=== PATIENT | female | born 1940 | race Caucasian/White ===

== ENCOUNTER 2018-12-02 13:40 | Day surgery (SDC) | payer SELFPAY ==
[2018-12-02] VITALS (8 sets, daily range): BP systolic 126–164; BP diastolic 56–85; PULSE 70–84; RESP 16–18; TEMP 35.9–37.5; O2SAT 94–97; BMI 29.3
--- NOTE | 2018-12-02 11:48 | PCM.HP.BLA ---
History and Physical Date of Admission: 12/02/18 HISTORY AND PHYSICAL ? Nirmala Zavala 1940 ? ? REFERRING PHYSICIAN: ??Hao Flores MD ? CHIEF COMPLAINT: ??Consult (Consult Perinoneal pleurex) ? HPI:?I am seeing this patient in conjunction with Dr. Dorsey.??The patient is a 78 year old female with a complaint of?ascites and?ovarian cancer, following with Dr. Flores.??Patient has noted recent ascites with significant abdominal bloating and discomfort.??Her who is present notes the size of her abdomen has increased significantly just within the last two days. ?Patient notes decreased appetite due to bloating and tightness in abdomen, also significant discomfort at night when trying to sleep. ? Patient's past medical history is significant for?ovarian cancer as noted above, hypertension, hyperlipidemia, SVT.??Patient denies any problems with anesthesia in the past. ? ? PAST MEDICAL HISTORY PAST MEDICAL HISTORY Diagnosis Date ? Hyperlipidemia ? ? Hypertension ? ? Ovarian cancer (HCC) ? ? SVT (supraventricular tachycardia) (HCC) ? ? PAST SURGICAL HISTORY PAST SURGICAL HISTORY Procedure Laterality Date ? PAST SURGICAL HISTORY OF ? ? ? tooth implant ? RESEC OVAR MALIG+WILLIAM+PELV NODES ? 09/20/2014 ? Exploratory laparotomy, total abdominal hysterectomy, infracolic ?omentectomy with interval debulking of ovarian cancer. ? TUNNEL VAD W SUB Q PORT >=5 Right 09/10/2016 ? Insertion right Intrajugular power port ? ? CURRENT MEDICATIONS ? Current Outpatient Medications: mirtazapine (REMERON) 15 mg tablet Take 1 tablet by mouth daily at bedtime. For sleep metoclopramide HCl (REGLAN) 5 mg tablet Take 1 tablet by mouth four times daily as needed. For nausea lisinopril (ZESTRIL) 10 mg tablet Take 1 tablet by mouth twice daily. ondansetron (ZOFRAN) 8 mg tablet Take 1 tablet by mouth every 8 hours as needed. acetaminophen (TYLENOL EXTRA STRENGTH) 500 mg tablet Take 500 mg by mouth every 8 hours as needed. ibuprofen (MOTRIN) 200 mg tablet Take 200 mg by mouth every 6 hours as needed. PYRIDOXINE HCL, VITAMIN B6, (VITAMIN B-6 ORAL) Take ?by mouth once daily. aspirin, enteric coated (ASPIRIN, ENTERIC COATED) 81 mg EC tablet Take 81 mg by mouth every other day. multivitamin tablet Take 1 tablet by mouth once daily. TIMOLOL MALEATE OPHTHALMIC Use 1 Drop in eyes once daily. 1 drop in each eye daily ERGOCALCIFEROL, VITAMIN D2, (VITAMIN D2 ORAL) Take 1 tablet by mouth once daily. ? No current facility-administered medications for this visit.? ? ALLERGIES:?Contrast Dye [Iodine] ? PERSONAL HISTORY:? SOCIAL HISTORY Social History ??Socioeconomic History ?Marital status: ?Spouse name: Not on file ?Number of children: Not on file ?Years of education: Not on file ?Highest education level: Not on file ??Social Needs ?Financial resource strain: Not on file ?Food insecurity - worry: Not on file ?Food insecurity - inability: Not on file ?Transportation needs - medical: Not on file ?Transportation needs - non-medical: Not on file ??Occupational History ?Not on file ??Tobacco Use ?Smoking status: Never Smoker ?Smokeless tobacco: Never Used ??Substance and Sexual Activity ?Alcohol use: No ?Drug use: No ?Sexual activity: Never ??Other Topics ?Concerns: ?Not on file ??Social History Narrative ?Not on file ? FAMILY HISTORY:? FAMILY HISTORY FAMILY HISTORY Problem Relation Age of Onset ? None Mother ? age 90 ? other (parkinson's disease [Other]) Father ? age 75 ? None Sister ? ? None Sister ? ? None Sister ? ? None Brother ? ? None Brother ? from fall accident ? None Brother ? from fall accident ? Cancer Maternal Grandmother ? REVIEW OF SYMPTOMS: ??The review of systems data was entered by the nurse and reviewed by me ? Nursing Notes: Giovanni Palm LPN ?12/02/2018 10:25 AM ?Signed REVIEW OF SYSTEMS: ?General:???The patient denies fatigue, denies weight loss, denies weight gain, denies feeling hot, and denies feelings of cold. ?Eyes: ?The patient denies glaucoma, denies eye injury/surgery, wears glasses or contacts. ?Ear/Nose/Throat: ?The patient denies allergies, denies hayfever, denies ear infections, and denies bloody noses. ?Cardiovascular: ?The patient denies chest pain, denies heart disease, NOTES high blood pressure,denies cardiac stent, denies prior heart attack, NOTES irregular heart beat, NOTES high cholesterol, ?denies poor circulation, denies heart failure, other cardiac issues, denies claudication, denies cold feet, denies peripheral arterial stent. ?Respiratory: ?The patient denies tuberculosis, denies pneumonia, denies frequent cough, denies pulmonary embolism, denies shortness of breath, and denies coughing up blood. ?Gastrointestinal: ?The patient denies difficulty swallowing, denies acid reflux, denies ulcers, denies vomiting, denies jaundice/hepatitis, denies gallbladder problems, denies black or tarry stools, denies hemorrhoids, denies bleeding from rectum, denies diverticulitis, denies constipation, denies diarrhea, denies loss of stool control, and denies hernias. ?Kidney/Bladder: ?The patient denies kidney stones, denies urine infections, and denies bloody urine. ?Skin: ?The patient denies a history of skin cancer, denies bleeding/changing moles, and denies a history of skin rash. ?Neurologic: ?The patient denies a history of epilepsy/convulsions, denies headaches, denies head/spinal injuries, and denies stroke/TIA. ?Psychiatric: ?The patient denies psychiatric medications, denies depression, and denies voices, denies substance abuse. ?Endocrine: ?The patient denies thyroid disorders, denies diabetes, and denies hormonal problems. ?Hematologic: ?The patient denies a history of bruising, denies bleeding, and denies anemia, denies blood clots. ?Infections: ?The patient denies a history of measles and mumps, denies rheumatic fever, and denies sexually transmitted diseases. ?Musculoskeletal: ?The patient denies back pain/injury, denies back problems, denies sciatica, denies knee/foot trouble, denies arthritis, or denies gout. ? ? When was patient's last Mammogram screening? unknown ? ? ?Last Colonoscopy: ?unknown ? ? Giovanni Palm LPN? I have confirmed and edited as necessary, the PFSH and ROS obtained by others. ? ? PHYSICAL EXAMINATION: ? General: ?The patient is 78 year old female, well nourished, well hydrated in no acute distress. ?The patient is oriented to time, place, and person. ? VITALS:?Blood pressure 140/75, pulse 67, temperature 36.9 ?C (98.5 ?F), height 152 cm (4' 11.84), weight 70.5 kg (155 lb 8 oz).?Body mass index is 30.53 kg/m?.? ? HEENT: ?Normal cephalic, ataumatic, pupils are equally round, sclera are anicteric, mucous membranes are moist, oropharynx is clear. ?Neck has no masses, asymmetry or lymphadenopathy. ? ? Respiratory: ?Clear to auscultation and percussion. ?Normal respiratory excursion and pattern. ? Cardiac: ?Examination is regular rate and rhythm. ?Normal S1/S2 ? Abdominal exam:??+ascites and moderate generalized discomfort to palpation. ?Portable ultrasound examination performed by Dr. Dorsey showing significant amount of fluid in abdomen. ?No hepatosplenomegaly. ?No palpable hernias. ? Extremities: ?no clubbing, cyanosis or edema. ?No adenopathy. ? ? ? LABORATORY VALUES: As Noted ? RADIOLOGIC STUDIES: ?As Noted ? IMPRESSION:?malignant ascites secondary to ovarian cancer ? PLAN:???Dr. Dorsey also evaluated the patient and participated in development of the following plan. ?He plans to place a PleurX catheter in the abdomen for malignant ascites.??Patient plans to have hospice assist with draining this after placement.??Consent: ?The proposed procedure, risks, benefits, and alternatives were discussed with the patient in detail. ?All the patient's questions were answered, and the patient voiced understanding. ?The patient desires to proceed with surgery. ? ? A letter was sent to ?indicating the above finding for this patient. ? Diagnoses:?(R18.0) Malignant ascites ?(primary encounter diagnosis) (C56.9) Malignant neoplasm of ovary, unspecified laterality (HCC) ? Patient verbalized understanding of all above and agreed with the plan ? Almaz Centeno PA-C ? This patient was seen in conjunction with Almaz Centeno PA-C, ?I reviewed the above note, discussed the pertinent history and examined the patient and agreed with the above examination. ?We have discussed the diagnosis and plan. ?Those plans have been communicated to the patient. ? ? ? PHYSICAL EXAMINATION: ? General: ?The patient is 78 year old female, well nourished, well hydrated in no acute distress. ?The patient is oriented to time, place, and person. ? VITALS:?Blood pressure 140/75, pulse 67, temperature 36.9 ?C (98.5 ?F), height 152 cm (4' 11.84), weight 70.5 kg (155 lb 8 oz). ? HEENT: ?Normal cephalic, ataumatic, pupils are equally round, sclera are anicteric, mucous membranes are moist, oropharynx is clear. ?Neck has no masses, asymmetry or lymphadenopathy. ?Thyroid is unremarkable. ? Respiratory: ?Clear to auscultation and percussion. ?Normal respiratory excursion and pattern. ? Cardiac: ?Examination is regular rate and rhythm. ? Abdominal exam: ?Soft, nontender, ?distended?with no palpable masses. ?No hepatosplenomegaly. ?No palpable hernias. ? Rectal exam:?exam deferred ? Extremities: ?no clubbing, cyanosis or edema. ?No adenopathy. ? Other:? ?ultrasound demonstrated ascites ? LABORATORY VALUES: As Noted ? RADIOLOGIC STUDIES: ?As Noted ? IMPRESSION:?malignant ascites from ovarian cancer ? ? PLAN:???I plan to perform an abdominal tunneled catheter/pleurex with ultrasound guidance.??The planned surgical procedure was discussed extensively with the patient. The risks, benefits and anticipated outcomes of the procedure, the risks and benefits of the alternatives to the procedure, and the roles and tasks of the personnel to be involved, were discussed with the patient. ?My staff has also explained the procedure in understandable terms and the patient was given the option to take printed material concerning the planned procedure. ?The patient had the opportunity to ask questions concerning the planned procedure. ?The patient freely consents to the planned procedure. ? Anticipated Surgical Procedure/ CPT Code:?53528 - Insertion of Tunnelled Intraperitoneal Catheter and 02945 - Ultrasound Guidance for Needle Placement ? Anticipated Anesthetic:?MAC with local ? Patient weight:??Blood pressure 140/75, pulse 67, temperature 36.9 ?C (98.5 ?F), height 152 cm (4' 11.84), weight 70.5 kg (155 lb 8 oz).?BMI: ?Body mass index is 30.53 kg/m?. ? Planned antibiotic:?Ancef 2gm IVPB marketing regional consultant to OR ? SCDs needed -?Yes ? Lollypop Machine Operator Needed -?No ?? ? My findings have been communicated to ?via shared medical record. ?This note will be forwarded to Dr. Adelso Conway, . ? Diagnoses:?(R18.0) Malignant ascites ?(primary encounter diagnosis) (C56.9) Malignant neoplasm of ovary, unspecified laterality (HCC) ? Return to Clinic: The patient is instructed to follow-up with me?1 week post operatively. ? This note was partially generated using [employer] voice recognition system, and there may be some incorrect words, spellings, and punctuation that were not noted in checking the note before saving.? Tulio Dorsey MD
[2018-12-02 14:19] LABS: Absolute Lymphocyte Count 1.22 X10^3/ul (0.83-4.51); Absolute Neutrophil Count 6.9 X10^3/uL (2.0-7.7); Basophil# 0.01 X10^3/uL; Basophil% 0.1 % (0-1); Eosinophil# 0.06 X10^3/uL; Eosinophils% 0.7 % (0-5); Hematocrit 38.1 % (37-47); Hemoglobin 12.9 g/dl (12.0-15.0); Lymphocyte # 1.22 X10^3/ul (4.0); Lymphocyte % 13.6 % (19-41); Mean Corp Hgb Conc 33.9 g/gl (32-36); Mean Corpuscular Hgb 32.6 pg (27.0-32.0); Mean Corpuscular Volume 96.2 fL (81-99); Mean Platelet Vol. 8.6 fl (6.2-12.0); Monocyte% 8.9 % (0-10); Neutrophil # 6.85 X10^3/uL (2.7-7.7); Neutrophil % 76.5 % (47-70); Platelet Count 264 K/mm3 (150-450); RBC Distribution Width CV 13.2 % (11.6-14.6); RBC Distribution Width SD 46.9 fl (35.1-43.9); Red Blood Count 3.96 M/mm3 (4.2-5.4)
[2018-12-02 14:20] LABS: POSITIVE COUNT NO; POSITIVE DIFFERENTIAL NO; POSITIVE MORPHOLOGY NO
[2018-12-02 14:31] LABS: Anion Gap 7 (5-15); BUN 15 mg/dL (7-18); BUN/Creat Ratio 17.3 RATIO (10-20); Calcium,Total 8.7 mg/dL (8.5-10.1); Chloride 97 mmol/L (98-107); Creatinine, Serum 0.87 mg/dL (0.55-1.02); EST Glomerular Filtration Rate 67 mL/min (>60); Est Glom Filt Rate - Afr Amer 81 mL/min (>60); Glucose 81 mg/dL (74-106); Potassium 4.8 mmol/L (3.5-5.1); Sodium Level 129 mmol/L (136-145)
[2018-12-02] MEDS: Cefazolin 2 GM in 0.9% Normal Saline 100 ML IV (17:16)
[2018-12-02] MEDS: Bupivacaine Mpf 0.5% 30 ML VIAL (17:31)
--- NOTE | 2018-12-02 18:00 | PCM.OPRPT ---
Report of Operation Date of Procedure: 12/02/18 Pre-Operative Diagnosis: Tense malignant ascites secondary cancer Post-Operative Diagnosis: Tense malignant ascites secondary cancer Surgery/Procedure Performed:: right lower quadrant tunneled peritoneal/Pleurx catheter with ultrasound guidance for placement power builder developer: None Type of Anesthesia:: Local MAC Anesthesiologist: Nya Uriarte - ASA3 Specimen's removed: ascites 5L Estimated Blood Loss (mL): minimal Fluids Replaced: 500 Description of Procedure: The patient was brought to the operating suite. Sign was performed verifying patient, site, position, skip antibiotic prophylaxis-2 g of Ancef and DVT prophylaxis with SCDs. Ultrasound was used to evaluate the lower abdomen and a window marked providing good entry into the peritoneal cavity along with marking the inferior epigastric to avoid the risks for bleeding was marked on the skin in the Following IV sedation, abdomen were prepped and draped in the usual fashion. Timeout was performed verifying patient, site, position. Local anesthetic was injected and a Seldinger needle was used to access the peritoneal cavity without difficulty. A guidewire was inserted and advanced into the peritoneal space. Local anesthetic was injected and incision made for the catheter exit site. Next the catheter was tunneled from the skin exit site to the wire. Dilators were placed over the wire until the largest dilator with introducer sheath were placed. The wire and dilator removed. The catheter was fed through the introducer suture sheath and adjusted to the edge of the abdominal cavity with the fenestrations . There was good return of ascites fluid. The Pleurx catheter was affixed to an adapter and ascetic fluid was drained. A total of approximately 5000 cc of fluid was drained. The catheter was secured with a 3-0 silk suture at the skin exit site. The abdominal insertion site skin was closed with 4-0 Biosyn interrupted subcuticular sutures. Dermabond was applied to the abdominal insertion site. A dressing was applied. The catheter was then capped and dressed with the occlusive dressing The patient was brought to recovery room in stable condition.
--- NOTE | 2018-12-02 19:01 | PCM.DC.GS ---
Discharge Diet: Light diet - advance as tolerated - If you have questions about your diet instructions, please talk to your doctor. Discharge Activity: May Shower - just before draining the catheter May resume sexual activity in: No Restrictions Call your doctor if your incision/area has: Continuous Slow Oozing, Sudden Increased Bleeding, Increased Pain/ Swelling, Increased Redness, Foul Smelling Discharge Call your doctor if you observe: Fever of 101 or Higher, Inability to urinate, Uncontrolled pain Allergies/Adverse Reactions: Allergies Iodinated Contrast- Oral and IV Dye [CT] Adverse Reaction (Verified 12/02/18 14:21) Itching Medications to take at Discharge Ascorbic Acid [Vitamin C] 500 mg PO DAILY@0800 09/09/16 Krill/Om-3/Dha/Epa/Phospho/Ast [Krill Oil 1,000 mg Softgel] 1 each PO DAILY 09/09/16 Multivitamin [Multiple Vitamins] 1 each PO DAILY 09/09/16 Vitamin E 1,000 unit PO DAILY 09/09/16 Oxycodone HCl/Acetaminophen [Percocet 5/325] 1 tab PO Q6H PRN PRN 4 Days #16 tab 12/02/18 The following prescriptions were given: Oxycodone HCl/Acetaminophen [Percocet 5/325] 1 tab PO Q6H PRN PRN 4 Days #16 tab PRN Reason: Pain Primary Care Physician: Adelso Conway DO [Primary Care Provider] - Test Results: Test results from this visit will be discussed in further detail at your follow-up appointment, if applicable. Please Follow Up With: Tulio Dorsey MD - [phone] When: Wednesday at 9:00 am
== END 2018-12-02 21:31 | disposition home or self-care (01) ==
LOC: SDC 13:44 → AC 13:47 → MS3 15:56
PROVIDERS: Family Provider Preventive Medicine Occupational Medicine; PCP Preventive Medicine Occupational Medicine; Referring Provider Surgery; Visit Provider Surgery
PROC: 0WHG43Z Insertion of Infusion Device into Peritoneal Cavity, Percutaneous Endoscopic Approach (ICD-10-PCS; CPT 49324; principal; 2018-12-02 08:40)
DX: C56.9 Malignant neoplasm of unspecified ovary (principal); R18.0 Malignant ascites; I47.1 Supraventricular tachycardia; I10 Essential (primary) hypertension; E78.5 Hyperlipidemia, unspecified; Z79.82 Long term (current) use of aspirin; Z79.899 Other long term (current) drug therapy
CPT/HCPCS: 00840; 49418; 36415; 80048; 85025; J7120; A4216; C1729